=== PATIENT | female | born 1950 | race African-American/Black ===

== ENCOUNTER → 2020-03-01 | Outpatient (CLI) | payer MEDICARE ==
--- NOTE | 2020-03-01 10:44 | Diagnostic Imaging Report ---
Exam: CHEST 2 VIEWS Date: 03/01/2020 10:40 AM INDICATION: ^[id number] ^[id number] ^COUGH Comparison: None FINDINGS: Lines/Tubes:None Lungs:The lungs are well inflated. No focal consolidation or pulmonary edema. Pleura:No pleural effusion. No pneumothorax. Heart/Mediastinum:Cardiomediastinal silhouette is borderline enlarged. Thoracic aorta is tortuous. Mild central vascular congestion is noted. Bones/Soft Tissues: No acute osseous abnormality. Mild to moderate multilevel degenerative changes of the spine are identified. Upper abdomen: Unremarkable. IMPRESSION: Negative for focal consolidation. Cardiomegaly and central vascular congestion are noted. Signed by: Brien Valerio MD on 03/01/2020 10:41 AM
== END ==
LOC: RAD 09:58
PROVIDERS: ATTEND Internal Medicine
DX: R05 Cough (principal)
CPT/HCPCS: 71046